=== PATIENT | female | born 1995 | race Caucasian/White ===

== ENCOUNTER 2020-12-12 08:42 | Outpatient (CLI) | payer BC, MEDICAID, SELFPAY ==
--- NOTE | ~2020-12-12 | US_ITS ---
EXAMINATION: US OB <= 14 weeks fetus DATE: 12/12/2020 11:07 INDICATION: Recurrent loss. TECHNIQUE: Real-time pelvic ultrasound utilizing both a transvaginal and transabdominal probe was pe rformed. The interpreting radiologist was not present for the study. COMPARISON: None. FINDINGS: The uterus measures 9.9 x 4.7 x 6.5 cm. There is an intrauterine gestational sac. A yolk sac and fet al pole are identified. The crown rump length measures 4 mm, which correlates with an estimated gesta tional age of 6 weeks and 1 days. heart motion is identified measuring 106 beats per minute (bp m) by M-mode Doppler. The right ovary measures 4.0 x 2.5 x 2.4 cm and contains a 1.2 cm anechoic cyst/follicle. cm. There i s normal vascular flow in the right ovary with both arterial and venous waveforms on color Doppler. T he left ovary is not visualized. There is no free fluid in the pelvis. IMPRESSION: 1. Single living fetus with heart rate of 106 bpm. 2. Gestational age by ultrasound of 6 weeks 1 day(s) +/- 4 day(s) with ultrasound estimated date of delivery ([facility]) of 08/06/2021. Reviewed, dictated and finalized at location B. IMPRESSION: 1. Single living fetus with heart rate of 106 bpm. 2. Gestational age by ultrasound of 6 weeks 1 day(s) +/- 4 day(s) with ultraso und estimated date of delivery ([facility]) of 08/06/2021.
== END 2020-12-12 08:43 | disposition home or self-care (01) ==
PROVIDERS: Visit Provider Obstetrics & Gynecology Gynecology
DX: O26.21 Pregnancy care for patient with recurrent pregnancy loss, first trimester (principal); Z3A.01 Less than 8 weeks gestation of pregnancy
CPT/HCPCS: 76801

== ENCOUNTER 2020-12-21 17:38 | Emergency (ER) | payer BC, MEDICAID, SELFPAY ==
[2020-12-21 17:43] VITALS: BP 138/74; PULSE 107; RESP 16; TEMP 36.4; O2SAT 100
[2020-12-21 18:36] VITALS: BP 134/78; PULSE 74; RESP 16; O2SAT 98
--- NOTE | 2020-12-21 18:45 | PC.NURSE ---
TRUDY in room with ptAmairani
--- NOTE | 2020-12-21 18:52 | ED.GENADULT ---
HPI - General Adult General Chief complaint: LOBBYIST Stated complaint: cramping-7 weeks Time Seen by Provider: 12/21/20 17:45 Source: patient Mode of arrival: ambulatory Limitations: no limitations History of Present Illness HPI narrative: Patient presents for evaluation of right-sided pelvic pain. Symptom onset 3 hours ago. She said pain is is stabbing sharp sensation, rated 6 out of 10 in severity. She has experienced similar symptoms in the past with miscarriage. . Currently , approximately 7 weeks gestation. She had a confirmed IUP per U/S during this on 12/12/20. She has a chronic clear vaginal discharge, unchanged from baseline. She denies any vaginal bleeding. She has experienced some nausea during this but denies any at the present time. No fever, chills, urinary symptoms, change in bowel pattern. She has not taken any medications for her symptoms. No hx of abdominal surgeries. OBGYN is Dr Murry. No additional complaints or concerns. Blood type is a positive. Related Data Allergies Allergy/AdvReac Type Severity Reaction Status Date / Time No Known Allergies Allergy Verified 12/21/20 18:12 Review of Systems Review of Systems: Narrative: CONSTITUTIONAL: Denies fever, chills, or sweats. EYES: Denies visual changes, redness, or discharge. ENT: Denies rhinorrhea, congestion, sore throat, or otalgia. CARDIOVASCULAR: Denies chest pain, palpitations, or edema. RESPIRATORY: Denies cough or dyspnea. GASTROINTESTINAL: Reports abdominal pain. Denies nausea, vomiting, or diarrhea. GENITOURINARY: Denies dysuria or hematuria. SKIN: Denies rash or itching. MUSCULOSKELETAL: Denies back pain, joint pain, or myalgia. NEUROLOGIC: Denies headache, numbness, dizziness, or weakness. PSYCHIATRIC: Denies anxiety or depression. [facility] Past Medical History Medical History (Updated 12/21/20 @ 21:54 by Rob Dumont, ERIKA, LUCY) Migraines Surgical History Surgical History No pertinent past surgical history Family History Family History Mother No pertinent past medical history Social History Social History (Updated 12/21/20 @ 18:58 by Rob Dumont, [facility], ) Smoking status: Never smoker Alcohol intake: never Substance use: never Living arrangements: with family Gender identity (if verbalized by the patient): Female Sexual Orientation (if Verbalized by the Patient): Straight or Heterosexual Spiritual care concerns: No Exam Narrative: Exam Narrative: GENERAL: Well-appearing, well-nourished, and in no acute distress. HEAD: Normocephalic, atraumatic. EYES: PERRLA and EOMI. ENT: Nares clear, no rhinorrhea or epistaxis. Mucous membranes moist. Oropharynx without tonsillar hypertrophy exudate or other lesions. Bilateral TMs pearly crews nonbulging NECK: Supple. No adenopathy or masses. No carotid bruits or JVD CHEST: Clear to auscultation. No respiratory distress. No wheezes rales or rhonchi HEART: Regular rate and rhythm. No murmur heard. Normal peripheral pulses. ABDOMEN: Soft, nondistended, normal active bowel sounds. Tenderness in RLQ with guarding but no rebound. EXTREMITIES: Normal range of motion. No edema. SKIN: Warm, dry, no rash. NEURO: No focal deficits. Alert and oriented x3. PSYCH: Normal mood and affect. Course Course Emergency Course: This is a 25-year-old female who presented with several hour history of right-sided pelvic pain. She is currently and Rh+. She is already had a confirmed IUP in this . She had no vaginal bleeding to suggest active miscarriage. She refused pelvic exam. I informed her that on the weekend and at night it is challenging to get an ultrasound if she is already had a confirmed IUP during this . I told her that additional pathology could not be ruled out such as appendicitis with
[2020-12-21 19:19] LABS: Basophils Absolute Auto 0.1 K/mm3 (0.0-0.1); Basophils Percent Auto 0.5 % (0.2-1.2); Eosinophils Absolute Auto 0.1 K/mm3 (0-0.3); Eosinophils Percent Auto 0.8 % (0-4.4); Hematocrit 41.2 % (37.0-47.0); Hemoglobin 14.5 g/dL (12.0-15.0); Immature Granulocyte Absolute 0.03 K/mm3 (0.00-0.031); Immature Granulocyte Percent A 0.2 % (0-0.5); Lymphocytes Absolute Auto 2.37 K/mm3 (0.9-3.2); Lymphocytes Percent Auto 18.4 % (18.3-44.2); Mean Corpuscular HGB Conc 35.2 g/dl (32-36); Mean Corpuscular Hemoglobin 29.7 pg (26-34); Mean Corpuscular Volume 84.3 fl (80-100); Mean Platelet Volume 10.4 fl (7.4-10.4); Monocytes Absolute Auto 0.8 K/mm3 (0.1-0.6); Neutrophils Absolute Auto 9.6 K/mm3 (1.3-6.7); Neutrophils Percent Auto 74.1 % (45.5-73.1); Platelet Count Result 274 k/mm3 (150-375); Red Blood Count 4.89 M/mm3 (4.2-5.4); Red Cell Distribution Width 12.4 % (11.5-14.5); White Blood Count 12.9 K/mm3 (4.5-10.0)
[2020-12-21 19:22] LABS: Add Urine Microscopic? NO; Appearance Urine Clear (Clear); Bilirubin Urine Negative (Negative); Blood Urine Negative (Negative); Color Urine Straw (Yellow); Glucose Urine UA Negative (Negative); Ketones Urine Negative (Negative); Leukocyte Esterase Ur Negative LEU/UL (Negative); Nitrate Urine Negative (Negative); Protein Urine Negative (Negative); Urobilinogen Urine Negative mg/dL (<2.0)
[2020-12-21 19:32] LABS: Specific Grav Ur 1.004 (1.001-1.035)
[2020-12-21 19:34] LABS: Potassium 3.8 mmol/L (3.4-5.0)
[2020-12-21 19:40] LABS: Alanine Aminotransferase 13 U/L (4-35); Albumin Level 4.2 g/dL (3.5-5.1); Alkaline Phosphatase 41 U/L (38-126); Anion Gap 5 mmol/L (8-16); Aspartate Amino Transferase 18 U/L (14-36); Bilirubin,Total 0.1 mg/dL (0.2-1.3); Blood Urea Nitrogen 7 mg/dL (7-17); Calcium 10.1 mg/dL (8.4-10.2); Carbon Dioxide 28 mmol/L (22-30); Chloride 102 mmol/L (98-107); Estimated CRCL calculation 105 ml/min; Estimated Glomerular Filt Rate > 60; Glucose 97 mg/dL (65-105); Lipase 109 U/L (23-300); Sodium 135 mmol/L (137-145)
== END 2020-12-21 22:19 | disposition home or self-care (01) ==
PROVIDERS: Emergency Provider Nurse Practitioner
DX: O26.891 Other specified pregnancy related conditions, first trimester (principal); R10.31 Right lower quadrant pain; Z3A.01 Less than 8 weeks gestation of pregnancy
CPT/HCPCS: 36415; 80053; 81003; 83690; 84702; 85025; 99283